=== PATIENT | male | born 2000 | race Caucasian/White ===

== ENCOUNTER 2025-06-01 19:47 | Emergency (ER) | payer BC, SELFPAY ==
--- OUTSIDE RECORDS SUMMARY | 2025-06-01 19:57 | XMS_ITS | Encounter Summary ---
Author Organization [facility] Address [address] [place] [address] Care Team Providers Care Religion Teacher Name Role Phone Declan Sanchez MD Primary Care Provider [phone] Encounter Details Date Type Department Care Team (Latest Contact Info) Description 09/19/2004 Outpatient Historical [facility] NO ADDRESS ON FILE INSECT BITE NEC (Primary Dx); URTICARIA NOS Social History Tobacco Use Types Packs/Day Years Used Date Smoking Tobacco: Never Assessed Sex and Gender Information Value Date Recorded Sex Assigned at Not on file Legal Sex Male 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 Gender Identity Not on file Sexual Orientation Not on file documented as of this encounter Plan of Treatment Not on file documented as of this encounter Visit Diagnoses Diagnosis Other, multiple, and unspecified sites, insect bite, nonvenomous, without mention of infection(919.4)- Primary Other, multiple, and unspecified sites, insect bite, nonvenomous, without mention of infection Urticaria, unspecified documented in this encounter Care Teams Religion Teacher Relationship Specialty Start Date End Date Declan Sanchez MD [address] [facility] [address] [place] [address] PCP - General Pediatric Hematology and Oncology 12/15/18 documented as of this encounter
--- OUTSIDE RECORDS SUMMARY | 2025-06-01 19:57 | XMS_ITS | Encounter Summary ---
Author Organization [facility] Address [address] [place] [address] Care Team Providers Care Crm Marketing Manager Name Role Phone Declan Sanchez MD Primary Care Provider [phone] Encounter Details Date Type Department Care Team (Late st Contact Info) Description 08/05/2006 Outpatient Historical [facility] [address] [place] [address] Joshua Banuelos, DO [address] [facility] [address] [place] [address] Routine Child Health Exam (Primary Dx) Social History Tobacco Use Types Packs/Day Years Used Date Smoking Tobacco: Never Assessed Sex and Gender Information Value Date Recorded Sex Assigned at Not on file Legal Sex Male 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
--- OUTSIDE RECORDS SUMMARY | 2025-06-01 19:57 | XMS_ITS | Encounter Summary ---
Author Organization [facility] Address [address] [place] [address] Care Team Providers Care Cam Specialist Name Role Phone Declan Sanchez MD Primary Care Provider [phone] Encounter Details Date Type Department Care Team (Late st Contact Info) Description 12/19/2007 Outpatient Historical 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 There is no evidence of fracture. Impression: Normal finger, if suspicion for occult fracture remains repeat x-ray in 10 days. Joshua Banuelos D.O. Health tracks - Pediatrics Electronically Signed by Joshua Banuelos D.O. 12/20/2007 16:33 , A, bartolo Job #: Document #: [id number] cc: ENTIALING SPECIALIST documented in this encounter Plan of Treatment Not on file documented as of this encounter Visit Diagnoses Not on filedocumented in this encounter Care Teams Cam Specialist Relationship Specialty Start Date End Date Declan Sanchez MD [address] [phone] PCP - General Pediatric Hematology and Oncology 12/15/18 documented as of this encounter
--- OUTSIDE RECORDS SUMMARY | 2025-06-01 19:57 | XMS_ITS | Encounter Summary ---
Author Organization [facility] Address [address] [place] [address] Care Team Providers Care Roads Superintendent Name Role Phone Declan Sanchez MD Primary Care Provider [phone] Encounter Details Date Type Department Care Team (Latest Contact Info) Description 01/05/[address] 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
--- OUTSIDE RECORDS SUMMARY | 2025-06-01 19:57 | XMS_ITS | Encounter Summary ---
Author Organization [facility] Address [address] [place] [address] Care Team Providers Care Jewel Hole Driller Name Role Phone Declan Sanchez MD Primary Care Provider [phone] Encounter Details Date Type Department Care Team (Latest Contact Info) Description 09/02/2003 Outpatient Historical [facility] ac[address] [place] [address] Roman Woods [address] [place] [address] Routine child health exam (Primary Dx) Social History Tobacco Use Types Packs/Day Years Used Date Smoking Tobacco: Never Assessed Sex and Gender Information Value Date Recorded Sex Assigned at Not on file Legal Sex Male 6:17 AM ROLL FORGER Gender Identity Not on file Sexual Orientation Not on file documented as of this encounter Plan of Treatment Not on file documented as of this encounter Visit Diagnoses Diagnosis Routine child health exam- Primary Routine or child health check documented in this encounter Care Teams Jewel Hole Driller Relationship Specialty Start Date End Date Declan Sanchez MD [address] [facility] 100 [place] [phone] PCP - General Pediatric Hematology and Oncology 12/15/18 documented as of this encounter
--- OUTSIDE RECORDS SUMMARY | 2025-06-01 19:57 | XMS_ITS | Encounter Summary ---
Author Organization [facility] Address [address] [place] [address] Care Team Providers Care Picker/Puller Name Role Phone Declan Sanchez MD Primary Care Provider [phone] Encounter Details Date Type Department Care Team (Latest Contact Info) Description 12/31/2004 Outpatient Historical 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
--- OUTSIDE RECORDS SUMMARY | 2025-06-01 19:57 | XMS_ITS | Encounter Summary ---
Author Organization [facility] Address [address] [place] [address] Care Team Providers Care Vice President Underwriting Name Role Phone Declan Sanchez MD Primary Care Provider [phone] Encounter Details Date Type Department Care Team (Latest Contact Info) Description 10/06/2004 Outpatient Historical [facility] [address] [place] [address] Shay Whitmore MD NO ADDRESS ON FILE UNSPEC CONSTIPATION (Primary Dx) Social History Tobacco Use Types Packs/Day Years Used Date Smoking Tobacco: Never Assessed Sex and Gender Information Value Date Recorded Sex Assigned at Not on file Legal Sex Male 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
--- OUTSIDE RECORDS SUMMARY | 2025-06-01 19:57 | XMS_ITS | Encounter Summary ---
Author Organization [facility] Address [address] [place] [address] Care Team Providers Care Engine Boss Name Role Phone Declan Sanchez MD Primary Care Provider [phone] Encounter Details Date Type Department Care Team (Latest Contact Info) Description 01/06/2005 Outpatient Historical [facility] [place] [address] [place] [address] Garett Bright MD NO ADDRESS ON FILE COUGH (Primary Dx) Social History Tobacco Use Types Packs/Day Years Used Date Smoking Tobacco: Never Assessed Sex and Gender Information Value Date Recorded Sex Assigned at Not on file Legal Sex Male 6:17 AM WELDER REPAIR Gender Identity Not on file Sexual Orientation Not on file documented as of this encounter Plan of Treatment Not on file documented as of this encounter Visit Diagnoses Diagnosis Cough- Primary documented in this encounter Care Teams Engine Boss Relationship Specialty Start Date End Date Declan Sanchez MD [address] [place] [address] PCP - General Pediatric Hematology and Oncology 12/15/18 documented as of this encounter
--- OUTSIDE RECORDS SUMMARY | 2025-06-01 19:57 | XMS_ITS | Clinical Summary ---
Author Organization [facility] Address [address] [facility] [place] [address] Care Team Providers Care Timber Treatment Plant Operator Name Role Phone Declan Sanchez MD Primary Care Provider [phone] Allergies Active Allergy Reactions Criticality Noted Date Comments Sunscreen Rash Low 03/22/2009 Medications dicyclomine (BENTYL) 10 mg capsuleIndicatio ns:Periumbilical abdominal pain,Gastroesoph ageal reflux disease, esophagitis presence not specified Take 2 Capsules (20 mg) by mouth 4 times daily Take 30 minutes before meals and at bedtime.. 240 Capsule 1 9 Active polyethylene glycol 3350 (MIRALAX) 17 gram/dose PowderIndication s:Bilateral lower abdominal pain,Nausea,Decr eased appetite,Other social stressor Take 1 SCOOP (17 Grams) by mouth daily Dissolve in 8 ounces of fluid and drink entire liquid. 527 Gram 6 9 Active Active Problems Problem Noted Date Diagnosed Date Bilateral lower abdominal pain 02/12/2019 Decreased appetite 02/12/2019 Nausea 02/12/2019 Other social stressor 02/12/2019 Periumbilical abdominal pain 12/21/2018 GERD (gastroesophageal reflux disease) 9 [place]'s bone disease 09/03/2014 Immunizations Immunization Administration Dates Next Due (INFANRIX)(6 WKS-6 YRS) DIPT HERIA, TETANUS TOXOIDS, AND ACCELLULAR PERTUSSIS VACCINE (DTAP), 0.5 ML IM 10/01/2008 (IPOL)(6 WKS AND UP) POLIOVI CHRIS VACCINE, INACTIVATED (IPV), 3 DOSE, SUBCUT OR IM 10/01/2008 (M-M-R II/PRIORIX)(12 MO UP) MEASLES, MUMPS AND RUBELLA VIRUS VACCINE, 0.5 ML IM/SUBCUT 10/01/2008,12/05/2003 (VARIVAX)(12 MOS UP)VARICELL A VIRUS VACCINE (PF) 0.5 ML, SUB CUT 10/01/2008,12/05/2003 Dt Dtp Dtap Vaccine 01/05/2005, 3,03/28/2003,2002 HIB, Unspecified Formulation 12/05/2003,03/28/20 03,01/24/2003 Hepatitis B Vaccine 12/05/2003,03/28/2003,2002 IPV/OPV 01/05/2005,03/28/2003,01/24/2003 Pneumococcal 7-valent conjug ate vaccine IM 01/05/2005,06/21/2003,03/28/2003,2002 Family History Medical History Relation Name Comments Healthy Brother 1 Healthy Brother 2 Other Mother fibromyalgia Relation Name Status Comments Brother 1 Alive Brother 2 Alive Father Alive Mother Alive Social History Tobacco Use Types Packs/Day Years Used Date Smoking Tobacco: Never Smokeless Tobacco: Never Alcohol Use Standard Drinks/Week Comments No 0 (1 standard drink = 0.6 oz pur e alcohol) Sex and Gender Information Value Date Recorded Sex Assigned at Not on file Legal Sex Male 12:50 AM FLOORHAND Gender Identity Not on file Sexual Orientation Not on file Last Filed Vital Signs Vital Sign Reading Time Taken Comments Blood Pressure 130/59 02/12/2019 2:21 PM CDT Pulse 103 02/12/2019 2:21 PM CDT Temperature - - Respiratory Rate - - Oxygen Saturation - - Inhaled Oxygen Concentration - - Weight 59.6 kg (131 lb 6.3 oz) 02/12/2019 2:21 P M CDT Height 172.7 cm (5' 8 ) 02/12/2019 2:21 PM CDT Body Mass Index 19.98 02/12/2019 2:21 PM CDT Plan of Treatment Health Maintenance Due Date Last Done Comments DTAP/TDAP/TD VACCINES (6 - Tdap) 2013 10/01/2008, 01/05/2005, 06/21/2003, Additional history exists HPV VACCINES (1 - Male 3-dos e series) 2017 INFLUENZA VACCINE (#1) 2025 HEPATITIS B VACCINES Completed 12/05/2003, 03/28/2003, 01/24/2003 Care Teams Timber Treatment Plant Operator Relationship Specialty Start Date End Date Declan Sanchez MD [address] [phone] PCP - General 02/13/21
--- OUTSIDE RECORDS SUMMARY | 2025-06-01 19:57 | XMS_ITS | Encounter Summary ---
Author Organization [facility] Address [address] [place] [address] Care Team Providers Care Boston Cutter Name Role Phone Declan Sanchez MD Primary Care Provider [phone] Encounter Details Date Type Department Care Team (Latest Contact Info) Description 02/19/2005 Outpatient Historical [facility] acks [address] [place] [address] Roman Woods [address] [place] [address] OTITIS MEDIA NOS (Primary Dx); ACUTE URI NOS Social History Tobacco Use Types Packs/Day Years Used Date Smoking Tobacco: Never Assessed Sex and Gender Information Value Date Recorded Sex Assigned at Not on file Legal 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
--- OUTSIDE RECORDS SUMMARY | 2025-06-01 19:57 | XMS_ITS | Encounter Summary ---
Author Organization [facility] Address [address] [place] [address] Care Team Providers Care Solutions Executive Cloud Sales Name Role Phone Declan Sanchez MD Primary Care Provider [phone] Encounter Details Date Type Department Care Team (Latest Contact Info) Description 05/25/2003 Outpatient Historical [facility] Shay Whitmore MD NO ADDRESS ON FILE DERMATITIS NOS (Primary Dx) Social History Tobacco Use Types Packs/Day Years Used Date Smoking Tobacco: Never Assessed Sex and Gender Information Value Date Recorded Sex Assigned at Not on file Legal Sex Male 6:17 AM MESSENGER FLOORPERSON Gender Identity Not on file Sexual Orientation Not on file documented as of this encounter Plan of Treatment Not on file documented as of this encounter Visit Diagnoses Diagnosis Contact dermatitis and other eczema, due to unspecified cause- Primary documented in this encounter Care Teams Solutions Executive Cloud Sales Relationship Specialty Start Date End Date Declan Sanchez MD [address] [facility] [address] [place] [phone] PCP - General Pediatric Hematology and Oncology 12/15/18 documented as of this encounter
--- OUTSIDE RECORDS SUMMARY | 2025-06-01 19:57 | XMS_ITS | Encounter Summary ---
Author Organization [facility] Address [address] [place] [address] Care Team Providers Care Residential Coordinator Name Role Phone Declan Sanchez MD Primary Care Provider [phone] Encounter Details Date Type Department Care Team (Latest Contact Info) Description 10/05/[address] 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
--- OUTSIDE RECORDS SUMMARY | 2025-06-01 19:57 | XMS_ITS | Encounter Summary ---
Author Organization [facility] Address [address] [place] [address] Care Team Providers Care Interventionist Name Role Phone Declan Sanchez MD Primary Care Provider [phone] Encounter Details Date Type Department Care Team (Late st Contact Info) Description 04/07/[address] 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
--- OUTSIDE RECORDS SUMMARY | 2025-06-01 19:57 | XMS_ITS | Encounter Summary ---
Author Organization [facility] Address [address] [place] [address] Care Team Providers Care Continuous Dryout Operator Helper Name Role Phone Declan Sanchez MD Primary Care Provider [phone] Encounter Details Date Type Department Care Team (Latest Contact Info) Description 06/21/2003 Outpatient Historical [facility] acks [address] [place] [address] Roman Woods [address] [place] [address] Routine child health exam (Primary Dx) Social History Tobacco Use Types Packs/Day Years Used Date Smoking Tobacco: Never Assessed Sex and Gender Information Value Date Recorded Sex Assigned at Not on file Legal Sex Male 6:17 AM READING INTERVENTIONIST Gender Identity Not on file Sexual Orientation Not on file documented as of this encounter Plan of Treatment Not on file documented as of this encounter Visit Diagnoses Diagnosis Routine child health exam- Primary Routine or child health check documented in this encounter Care Teams Continuous Dryout Operator Helper Relationship Specialty Start Date End Date Declan Sanchez MD [address] [facility] [address] [place] [address] PCP - General Pediatric Hematology and Oncology 12/15/18 documented as of this encounter
--- OUTSIDE RECORDS SUMMARY | 2025-06-01 19:57 | XMS_ITS | Encounter Summary ---
Author Organization [facility] Address [address] [place] [address] Care Team Providers Care Lacquer Mixer Name Role Phone Declan Sanchez MD Primary Care Provider [phone] Encounter Details Date Type Department Care Team (Latest Contact Info) Description 01/24/2003 Outpatient Historical [facility] acks [address] [place] [address] Roman Woods [address] [place] [address] Routine child health exam (Primary Dx) Social History Tobacco Use Types Packs/Day Years Used Date Smoking Tobacco: Never Assessed Sex and Gender Information Value Date Recorded Sex Assigned at Not on file Legal Sex Male 6:17 AM FIGURE CLERK Gender Identity Not on file Sexual Orientation Not on file documented as of this encounter Plan of Treatment Not on file documented as of this encounter Visit Diagnoses Diagnosis Routine child health exam- Primary Routine or child health check documented in this encounter Care Teams Lacquer Mixer Relationship Specialty Start Date End Date Declan Sanchez MD [address] [facility] [address] [place] [address] PCP - General Pediatric Hematology and Oncology 12/15/18 documented as of this encounter
--- OUTSIDE RECORDS SUMMARY | 2025-06-01 19:57 | XMS_ITS | Encounter Summary ---
Author Organization [facility] Address [address] [place] [address] Care Team Providers Care Mate Fishing Vessel Name Role Phone Declan Sanchez MD Primary Care Provider [phone] Encounter Details Date Type Department Care Team (Latest Contact Info) Description 05/18/2006 Outpatient Historical [facility] [address] [facility] [place] [phone] Shay Whitmore MD NO ADDRESS ON FILE Unspecified Infective Otitis Externa (Primary Dx); Anal Fissure Social History Tobacco Use Types Packs/Day Years Used Date Smoking Tobacco: Never Assessed Sex and Gender Information Value Date Recorded Sex Assigned at Not on file Legal Sex Male 6:17 AM WIRE PULLER Gender Identity Not on file Sexual Orientation Not on file documented as of this encounter Plan of Treatment Not on file documented as of this encounter Visit Diagnoses Diagnosis Infective otitis externa, unspecified- Primary Anal fissure documented in this encounter Care Teams Mate Fishing Vessel Relationship Specialty Start Date End Date Declan Sanchez MD [address] [facility] [address] [place] [phone] PCP - General Pediatric Hematology and Oncology 12/15/18 documented as of this encounter
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
--- OUTSIDE RECORDS SUMMARY | 2025-06-01 19:57 | XMS_ITS | Encounter Summary ---
Author Organization [facility] Address [address] [place] [address] Care Team Providers Care Field Map Technician Name Role Phone Declan Sanchez MD Primary Care Provider [phone] Encounter Details Date Type Department Care Team (Latest Contact Info) Description 11/05/2003 Outpatient Historical [facility] acks [address] [place] [address] Roman Woods [address] [place] [address] ACUTE PHARYNGITIS (Primary Dx); UNSPECIFIED VIRAL INFECTION Social History Tobacco Use Types Packs/Day Years Used Date Smoking Tobacco: Never Assessed Sex and Gender Information Value Date Recorded Sex Assigned at Not on file Legal Sex Male 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
--- OUTSIDE RECORDS SUMMARY | 2025-06-01 19:57 | XMS_ITS | Encounter Summary ---
Author Organization [facility] Address [address] [place] [address] Care Team Providers Care Heel Pricker Name Role Phone Declan Sanchez MD Primary Care Provider [phone] Encounter Details Date Type Department Care Team (Latest Contact Info) Description 12/05/2003 Outpatient Historical [facility] acks [address] [place] [address] Roman Woods [address] [place] [address] Routine child health exam (Primary Dx) Social History Tobacco Use Types Packs/Day Years Used Date Smoking Tobacco: Never Assessed Sex and Gender Information Value Date Recorded Sex Assigned at Not on file 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
--- OUTSIDE RECORDS SUMMARY | 2025-06-01 19:57 | XMS_ITS | Encounter Summary ---
Author Organization [facility] Address [address] [place] [address] Care Team Providers Care Surgical Manager Name Role Phone Declan Sanchez MD Primary Care Provider [phone] Encounter Details Date Type Department Care Team (Latest Contact Info) Description 02/28/2006 Outpatient Historical [facility] rack [address] [place] [phone] Shay Whitmore MD NO ADDRESS ON FILE Unspecified Otitis Media (Primary Dx); Unspecified Acute Conjunctivitis Social History Tobacco Use Types Packs/Day Years Used Date Smoking Tobacco: Never Assessed Sex and Gender Information Value Date Recorded Sex Assigned at Not on file 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
--- OUTSIDE RECORDS SUMMARY | 2025-06-01 19:57 | XMS_ITS | Encounter Summary ---
Author Organization [facility] Address [address] [place] [address] Care Team Providers Care Laser Operator Name Role Phone Declan Sanchez MD Primary Care Provider [phone] Encounter Details Date Type Department Care Team (Latest Contact Info) Description 11/28/2003 Outpatient Historical [facility] acks [address] [place] [address] Roman Woods [address] [place] [address] CROUP (Primary Dx) Social History Tobacco Use Types Packs/Day Years Used Date Smoking Tobacco: Never Assessed Sex and Gender Information Value Date Recorded Sex Assigned at Not on file 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
--- OUTSIDE RECORDS SUMMARY | 2025-06-01 19:57 | XMS_ITS | Encounter Summary ---
Author Organization [facility] Address [address] [place] [address] Care Team Providers Care Ship Joiner Name Role Phone Declan Sanchez MD Primary Care Provider [phone] Encounter Details Date Type Department Care Team (Latest Contact Info) Description 04/29/2004 Outpatient Historical [facility] acks [address] [place] [phone] Hiren Fleming MD NO ADDRESS ON FILE ABDOMINAL PAIN GENERALIZED (Primary Dx); UNSPEC CONSTIPATION Social History Tobacco Use Types Packs/Day Years Used Date Smoking Tobacco: Never Assessed Sex and Gender Information Value Date Recorded Sex Assigned at Not on file 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
--- OUTSIDE RECORDS SUMMARY | 2025-06-01 19:57 | XMS_ITS | Clinical Summary ---
Author Organization [facility] Address [address] 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 Gender Identity Not on file Sexual Orientation Not on file Occupation Industry Job Start Date Job End Date Not on file Not on file Not on file Not on file Last Filed Vital Signs Vital Sign Reading Time Taken Comments Blood Pressure 130/59 02/12/2019 2:21 PM CDT Pulse 103 02/12/2019 2:21 PM CDT Temperature 35.8 C (96.4 F) 06/16/2011 11:14 AM CDT Respiratory Rate 18 06/16/2011 11:14 AM CDT Oxygen Saturation 97% 06/16/2011 11:14 AM CDT Inhaled Oxygen Concentration - - Weight 59.6 [...] HEPATITIS B VACCINES Completed 12/05/2003, 03/28/2003, 01/24/2003 Insurance [facility] [address] [place] [id number] [facility] Care Teams Homicide Detective Relationship Specialty Start Date End Date Declan Sanchez MD [address] [phone] PCP - General Pediatric Hematology and Oncology 12/15/18
--- OUTSIDE RECORDS SUMMARY | 2025-06-01 19:57 | XMS_ITS | Encounter Summary ---
Author Organization [facility] Address [address] [place] [address] Care Team Providers Care Systems Qa Analyst Name Role Phone Declan Sanchez MD Primary Care Provider [phone] Encounter Details Date Type Department Care Team (Latest Contact Info) Description 03/28/2003 Outpatient Historical [facility] acks [address] [place] [address] Roman Woods [address] [place] [address] Routine child health exam (Primary Dx) Social History Tobacco Use Types Packs/Day Years Used Date Smoking Tobacco: Never Assessed Sex and Gender Information Value Date Recorded Sex Assigned at Not on file 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
--- OUTSIDE RECORDS SUMMARY | 2025-06-01 19:57 | XMS_ITS | Encounter Summary ---
Author Organization [facility] Address [address] [place] [address] Care Team Providers Care Bench Carpenter Name Role Phone Declan Sanchez MD Primary Care Provider [phone] Encounter Details Date Type Department Care Team (Latest Contact Info) Description 04/26/2004 Outpatient Historical [facility] [address] [place] [address] Anthony Wells MD NO ADDRESS ON FILE INFECTIOUS ENTERITIS NOS (Primary Dx) Social History Tobacco Use Types Packs/Day Years Used Date Smoking Tobacco: Never Assessed Sex and Gender Information Value Date Recorded Sex Assigned at Not on file 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
--- OUTSIDE RECORDS SUMMARY | 2025-06-01 19:58 | XMS_ITS | Encounter Summary ---
Author Organization [facility] Address [address] [place] [address] Care Team Providers Care Surveying Or Spatial Science Technician Name Role Phone Declan Sanchez MD Primary Care Provider Encounter Details Date Type Department Care Team (Latest Contact Info) Description 2002 Outpatient Historical [facility] acks [address] [place] [phone] Roman Woods [address] [place] [address] NB feeding problems (Primary Dx) Social History Tobacco Use Types Packs/Day Years Used Date Smoking Tobacco: Never Assessed Sex and Gender Information Value Date Recorded Sex Assigned at Not on file Legal Sex Male 6:[address] 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
--- OUTSIDE RECORDS SUMMARY | 2025-06-01 19:58 | XMS_ITS | Encounter Summary ---
Author Organization [facility] Address [address] [place] [address] Care Team Providers Care Bilingual Sales Representative Name Role Phone Declan Sanchez MD Primary Care Provider [phone] Encounter Details Date Type Department Care Team (Late st Contact Info) Description 2002 Outpatient Historical [facility] [address] [place] [phone] Social History Tobacco Use Types Packs/Day Years Used Date Smoking Tobacco: Never Assessed Sex and Gender Information Value Date Recorded Sex Assigned at Not on file Legal 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
--- OUTSIDE RECORDS SUMMARY | 2025-06-01 19:58 | XMS_ITS | Encounter Summary ---
Author Organization [facility] Address [address] [place] [address] Care Team Providers Care Child Welfare Social Worker Name Role Phone Declan Sanchez MD Primary Care Provider [phone] Encounter Details Date Type Department Care Team (Latest Contact Info) Description 2002 Outpatient Historical [facility] acks [address] [place] [address] Roman Woods [address] [place], [place] [address] Routine child health exam (Primary Dx); SCREENING-PHENYLKETO SADIE Social History Tobacco Use Types Packs/Day Years Used Date Smoking Tobacco: Never Assessed Sex and Gender Information Value Date Recorded Sex Assigned at Not on file Legal 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
--- OUTSIDE RECORDS SUMMARY | 2025-06-01 19:58 | XMS_ITS | Encounter Summary ---
Author Organization [facility] Address [address] [place] [address] Care Team Providers Care Bottom Ironer Name Role Phone Declan Sanchez MD Primary Care Provider [phone] Encounter Details Date Type Department Care Team (Latest Contact Info) Description 01/22/2003 Outpatient Historical [facility] acks [address] [place] [address] Shay Whitmore MD NO ADDRESS ON FILE ACUTE URI NOS (Primary Dx) Social History Tobacco Use Types Packs/Day Years Used Date Smoking Tobacco: Never Assessed Sex and Gender Information Value Date Recorded Sex Assigned at Not on file 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
[2025-06-01 20:07] VITALS: BP 127/80; PULSE 80; RESP 16; TEMP 36.4; O2SAT 100; BMI 18.6
--- NOTE | 2025-06-01 20:30 | W.ED.EAR ---
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 He did try Debrox prior to arrival, however feels as if he has no hearing now out of his left ear due to obstruction of suspected wax. Associated symptoms: Denies fever(s), headache(s) or neck pain Related Data Previous Rx's ?Medication ?Instructions ?Recorded ofloxacin 0.3 % eye drops 2 drp otic (ear) BID 7 days #10 mL 06/01/25 Allergies Allergy/AdvReac Type Severity Reaction Status Date / Time No Known Allergies Allergy Verified 01/17/20 17:17 Review of Systems General: Reports: 10 or more systems reviewed and unremarkable except in HPI and below Const: Denies: fever(s) or chills Eyes: Denies: change in vision or blurry vision ENMT: Denies: throat pain Card: Denies: chest pain or palpitations Resp: Denies: dyspnea or productive cough GI: Denies: abdominal pain, nausea or vomiting : Denies: flank pain or difficulty urinating Musc: Denies: neck pain or back pain Skin/Breast: Denies: rash or pruritus Neuro: Denies: headache(s) or numbness in extremities Psych: Denies: anxiety or depression PFS ED PFSH: Social History (Updated 01/17/20 @ 17:19 by America Fortune RN) Smoking and tobacco/nicotine status: never used tobacco/nicotine Second hand smoke exposure: No Physical Exam Const: COMMON NORMALS: patient oriented x3 HENMT: COMMON NORMALS: normocephalic and atraumatic HEAD & SCALP: normocephalic and atraumatic TYMPANIC MEMBRANE: TM abnormal TM laterality: right Details: other and left Details: obstructed by cerumen Eye: COMMON NORMALS: Equal, round and reactive pupils present and EOMs intact bilaterally PUPIL: Yes Equal, round and reactive pupils present Neck/C-Spine: COMMON NORMALS: full ROM, no lymphadenopathy and no JVD Lymph: LYMPHATIC: no lymphadenopathy noted Chest: COMMONS NORMALS: normal inspection of the chest and normal palpation of entire chest wall Resp: COMMON NORMALS: normal respiratory effort, No retractions and clear to auscultation bilaterally AUSCULTATION: clear to auscultation bilaterally Cardio: COMMON NORMALS: no JVD, regular rate and regular rhythm RATE: regular rate RHYTHM: regular rhythm GI: COMMON NORMALS: Normal to inspection, nondistended, normoactive bowel sounds present : COMMON NORMALS: Yes no CVA tenderness BLADDER/KIDNEY EXAM: Yes no CVA tenderness Back/Pelvis: COMMON NORMALS: no CVA tenderness Extremity: COMMON NORMALS: normal to inspection, full ROM and capillary refill normal Neuro: COMMON NORMALS: patient oriented x3, CN's II-XII intact bilaterally and moves all extremities Psych: COMMON NORMALS: mental status grossly normal and Normal thought process present THOUGHT PROCESS: Normal thought process present Skin: COMMON NORMALS: no rashes or lesions noted and no wounds GENERAL SKIN EXAM: no rashes or lesions noted Course Vital Signs: Vital signs: Vital Signs Temperature 97.6 F 06/01/25 20:07 Pulse Rate 80 06/01/25 20:07 Respiratory Rate 16 06/01/25 20:07 Blood Pressure 127/80 06/01/25 20:07 Pulse Oximetry 100 06/01/25 20:07 Oxygen Delivery Me thod Room Air 06/01/25 20:07 MDM - Ear Medical Decision Making Nurse was able to flush the ear with hydrogen peroxide and sterile water solution until patient had control of his hearing. Afterwards his TMs were reevaluated which showed a little bit of otitis externa at 2:00. He did not have any pain in this area or elevation of the ear. I did send in ofloxacin to the pharmacy with concern of secondary otitis externa after his ear cleaning of the left side. Discussed prophylaxis of keeping his ears clean with his job/headphones, patient states understanding. No radiology studies performed this visit Discharge Plan Discharge Patient Disposition: Home Clinical Impression: Cerumen impaction Qualifiers: Laterality: left Qualified Code(s): H61.22 - Impacted cerumen, left ear Condition: Stable Prescriptions: New ofloxacin 0.3 % drops 2 drp otic (ear) BID 7 Days Qty: 10 0RF Rx Instructions: 4 hours and 6 hours after retiring Discharge Orders: Discharge ED (Routine); Ordered 06/01/25 Ordered By: Kyra Bhatia Referrals: Declan Sanchez MD [Primary Care Provider, Pediatrics] Discharge Diet: Usual diet Discharge Activity: Resume usual activity Patient Instructions: Cerumen Impaction, Patient Portal & Tam Instructions Activity Restrictions/Additional Instructions: Continue with Debrox on a weekly basis Return to ED for further issues I have sent your medication to the pharmacy open tomorrow for your left ear. Return to ED for further issues. Is important to follow-up with your primary care physician regarding the visit today and have your ear rechecked. Print Language: Welsh Coding Level of Care Code ED Supervisor Reactor Fueling for Presley Borja
== END 2025-06-01 21:25 | disposition home or self-care (01) ==
PROVIDERS: Emergency Provider Physician Assistant
DX: H61.22 Impacted cerumen, left ear (principal)
CPT/HCPCS: 99283